=== PATIENT | male | born 1960 | race Caucasian/White ===

== ENCOUNTER 2018-04-27 18:38 | Observation (INO) ==
[2018-04-27] MEDS ORDERED: Isovue-370 500 ML INFUS..BTL IV ONE (20:14)
[2018-04-27] MEDS ORDERED: methylPREDNISolone 125 MG/2 ML VIAL IVP ONE (20:16)
[2018-04-27] MEDS ORDERED: 0.9 % Sodium Chloride 1,000 ML IVC ONE (20:16)
[2018-04-27] MEDS ORDERED: Ondansetron 4 MG/2 ML VIAL IVP ONE (20:16)
[2018-04-27] MEDS ORDERED: Ipratropium/Albuterol Neb 3 ML IH ONE (20:16)
[2018-04-27 20:27] LABS: Basophils % 0.1 %; Hematocrit 47.1 % (37.5-50.1); Hemoglobin 15.9 g/dL (12.9-16.9); Immature Granulocytes % 0.4 % (0-4); Lymphocytes # 1.8 K/mcL (0.6-4.6); Lymphocytes % 11.6 %; Mean Corpuscular HGB Conc 33.8 g/dL (31.6-35.5); Mean Corpuscular Hemoglobin 30.1 pg (28.0-33.3); Mean Corpuscular Volume 89.2 fL (83.0-100.0); Monocytes # 0.7 K/mcL (0.0-1.3); Monocytes % 4.7 %; Neutrophils # 13.1 K/mcL (1.6-8.9); Platelet Count 261 K/mcL (140-400); Red Blood Count 5.28 M/mcL (4.19-5.50); Red Cell Distribution Width 12.3 % (11.5-14.5); Segmented Neutrophils % 83.2 %
[2018-04-27 20:47] LABS: Alanine Aminotransferase 9 Units/L (7-52); Albumin 4.4 g/dL (3.5-5.7); Albumin/Globulin Ratio 1.4 (1.1-2.2); Alkaline Phosphatase 69 Units/L (34-104); Aspartate Amino Transferase 10 Units/L (13-39); BUN/Creatinine Ratio 19 (6-26); Bilirubin,Direct 0.2 mg/dL (0.0-0.2); Bilirubin,Indirect 0.8 mg/dL (0.0-1.2); Blood Urea Nitrogen 14 mg/dL (6-20); Calcium 10.3 mg/dL (8.6-10.3); Carbon Dioxide 29 mEq/L (23-29); Chloride 103 mEq/L (98-107); Globulin 3.2 g/dL (2.4-3.5); Glucose 129 mg/dL (70-105); Lipase 8 Units/L (11-82); Osmolality,Calculated 294 (280-300); Sodium 141 mEq/L (136-145); Total Protein 7.6 g/dL (6.4-8.9); eGFR For Non-African Americans > 60 (> 60)
--- NOTE | 2018-04-27 20:49 | Emergency Department Note ---
Disposition Clinical Impression: Multifocal pneumonia Aspiration pneumonia Qualifiers: Aspiration pneumonia type: unspecified Laterality: left Lung location: unspecified part of lung Qualified Code(s): J69.0 - Pneumonitis due to inhalation of food and vomit Disposition: Admitted As Inpatient Condition: Good Referrals: NONE,PCP [Primary Care Provider] - Forms: ED Satisfaction Letter General Adult HPI - General Chief complaint: ED Back Pain/Injury Stated complaint: N/V Back Pain Time Seen by Provider: 04/27/18 20:08 Source: patient Mode of arrival: ambulatory Limitations: no limitations Nursing Notes Reviewed: Yes Vital Signs Reviewed: Yes - History of Present Illness HPI Narrative: Patient states significant medical history of previous wilber placements within his back. Patient states he smokes but has not been diagnosed with any previous COPD. His coughing started approximately 4-5 days ago. He states cough is been progressively worse and nothing has helped. He is in the room actively coughing up positive sputum production. He does not seem to be able to get comfortable and continues to cough up positive sputum with each cough. Sputum is yellow and green in nature. He has posttussive emesis after his coughs. He states that he developed abdominal pain early yesterday and it has continued to worsen in nature. He states he has diffuse abdominal tenderness. On exam he is hard to examine secondary to the repeated episodes of coughing. Patient has mildly coarse lung sounds without specific wheezing. Concern for possible underlying COPD. Breathing treatments and steroids will be given secondary to the s ignificance of his symptoms. Chest x-ray, blood work, EKG, CT abdomen and pelvis also been ordered. High concern for pneumonia. Will rule out intra- abdominal pathologies. Patient will be monitored closely with frequent re- evaluations. Pain Scale: 10 - Related Data Previous Rx's Medication Instructions Recorded Tramadol HCl [Ultram] 50 mg PO TID PRN #14 tab 07/02/16 Allergies Allergy/AdvReac Type Severity Reaction Status Date / Time No Known Allergies Allergy Verified 07/02/16 20:44 Review of Systems: CONSTITUTIONAL: Fevers chills weakness and fatigue. HEENT: Eyes: No visual changes. Ears, Nose, Throat: No hearing loss, difficulty talking or unable to swallow. SKIN: No rash or itching. CARDIOVASCULAR: Chest pain worse with coughing RESPIRATORY: Shortness of breath, cough, positive sputum production. GASTROINTESTINAL: Generalized abdominal pain that is worse in the epigastric region with associated posttussive emesis decreased appetite. No diarrhea or constipation. GENITOURINARY: No burning on urination or hematuria. NEUROLOGICAL: No headache, dizziness, syncope, paralysis, ataxia, numbness or tingling in the extremities. No change in bowel or bladder control. MUSCULOSKELETAL: No muscle pain, back pain, joint pain or stiffness. Past Medical History - Past Medical History Medical history: Reports: hepatitis, other (chronic back pain, herniated lumbar disc) Surgical history: Reports: other (back surgery) Psychiatric history: Reports: no psych history - Social History Smoking Status: Former smoker Smokeless Tobacco Status: No Alcohol use: Reports: none Drug use: Reports: none Physical Exam General: Moderate distress secondary to repeated coughing. Head: Normocephalic Atraumatic Eyes: PERRL, EOMI ENT: Airway patent, no stridor Neck: supple Chest: Coarse lung sounds bilaterally. Cardiac: Regular rate and rhythm, no murmurs, rubs or gallops Abdomen: soft, generalized tenderness to the abdomen worsening epigastric region., nondistended; no guarding, rebound, or tenderness to percussion Musculoskeletal: Calves symmetric, nontender, no palpable cord Skin: No rash, normal skin tone Neuro: Alert and Oriented to person, place, and time; No focal deficit Course - Reevaluation(s) Reevaluation #1: Patient has had significant improvement in his overall coughing with breathing treatments. Patient did receive steroids. The patient has multifocal pneumonia on chest x-ray. CT scan shows innumerable lung nodules inflammatory versus infectious and concern for aspiration pneumonia. Given the patient's poor social history as well as follow-up and a concern for aspiration pneumonia patient will be admitted for further management. - Consultations Consultation #1: Discussed with hospitalist. Patient accepted for admission. Vital Signs Temperature 97.8 F 04/27/18 18:44 Pulse Rate 79 04/27/18 18:44 Respiratory Rate 18 04/27/18 18:44 Blood Pressure 170/103 04/27/18 18:44 O2 Sat by Pulse Oximetry 94 04/27/18 18:44 Temperature 97.8 F 04/27/18 21:32 Pulse Rate 61 04/27/18 22:35 Respiratory Rate 18 04/27/18 22:35 Blood Pressure 147/82 11/08/18 22:35 O2 Sat by Pulse Oximetry 96 04/27/18 22:35 Oxygen Delivery Oxygen Delivery Room Air Medical Decision Making - Lab Data Result diagrams: 04/27/18 20:09 04/27/18 20:09 Lab Results 04/27/18 04/27/18 04/27/18 Range/Units 20:09 20:09 20:30 WBC 15.7 H (4.3-11.1) K/mcL RBC 5.28 (4.19-5.50) M/mcL Hgb 15.9 (12.9-16.9) g/dL Hct 47.1 (37.5-50.1) % MCV 89.2 (83.0-100.0) fL MCH 30.1 (28.0-33.3) pg MCHC 33.8 (31.6-35.5) g/dL RDW 12.3 (11.5-14.5) % Plt Count 261 (140-400) K/mcL MPV 12.0 (9.4-12.4) fL Immature Gran % 0.4 (0-4) % Seg Neutrophils % 83.2 % Lymphocytes % 11.6 % Monocytes % 4.7 % Eosinophils % 0.0 % Basophils % 0.1 % Neutrophils # 13.1 H (1.6-8.9) K/mcL Lymphocytes # 1.8 (0.6-4.6) K/mcL Monocytes # 0.7 (0.0-1.3) K/mcL Eosinophils # 0.0 (0.0-0.6) K/mcL Basophils # 0.0 (0.0-0.2) K/mcL Sodium 141 (136-145) mEq/L Potassium 4.0 (3.5-5.1) mEq/L Chloride 103 (98-107) mEq/L Carbon Dioxide 29 (23-29) mEq/L BUN 14 (6-20) mg/dL Creatinine 0.73 (0.70-1.30) mg/dL Est GFR ( Amer) > 60 (> 60) Est GFR (Non-Af Amer) > 60 (> 60) BUN/Creatinine Ratio 19 (6-26) Glucose 129 H (70-105) mg/dL Calculated Osmolality 294 (280-300) Lactic Acid (0.5-2.2) mmol/L Calcium 10.3 (8.6-10.3) mg/dL Total Bilirubin 1.0 (0.3-1.0) mg/dL Direct Bilirubin 0.2 (0.0-0.2) mg/dL Indirect Bilirubin 0.8 (0.0-1.2) mg/dL AST 10 L (13-39) Units/L ALT 9 (7-52) Units/L Alkaline Phosphatase 69 (34-104) Units/L Troponin I < 0.03 (< 0.04) ng/mL Serum Total Protein 7.6 (6.4-8.9) g/dL Albumin 4.4 (3.5-5.7) g/dL Globulin 3.2 (2.4-3.5) g/dL Albumin/Globulin Ratio 1.4 (1.1-2.2) Lipase 8 L (11-82) Units/L Urine Color (Yellow) Urine Clarity (Clear) Urine pH (5.0-8.0) pH Units Ur Specific [place] (1.010-1.025) Urine Protein (Neg-Trace) mg/dL Urine Glucose (UA) (Normal) mg/dL Urine Ketones (Negative) mg/dL Urine Blood (Negative) Urine Nitrite (Negative) Urine Bilirubin (Negative) Urine Urobilinogen (Normal) mg/dL Ur Leukocyte Esterase (Negative) Urine Microscopic RBC (0-3) per hpf Urine Microscopic WBC (0-3) per hpf Ur Squamous Epith Cells (None-Few) per lpf Urine Bacteria (None-Few) per hpf Hyaline Casts (None-Few) per lpf Ur Culture Indicated? (NO) 04/27/18 04/27/18 Range/Units 20:30 20:58 WBC (4.3-11.1) K/mcL RBC (4.19-5.50) M/mcL Hgb (12.9-16.9) g/dL Hct (37.5-50.1) % MCV (83.0-100.0) fL MCH (28.0-33.3) pg MCHC (31.6-35.5) g/dL RDW (11.5-14.5) % Plt Count (140-400) K/mcL MPV (9.4-12.4) fL Immature Gran % (0-4) % Seg Neutrophils % % Lymphocytes % % Monocytes % % Eosinophils % % Basophils % % Neutrophils # (1.6-8.9) K/mcL Lymphocytes # (0.6-4.6) K/mcL Monocytes # (0.0-1.3) K/mcL Eosinophils # (0.0-0.6) K/mcL Basophils # (0.0-0.2) K/mcL Sodium (136-145) mEq/L Potassium (3.5-5.1) mEq/L Chloride (98-107) mEq/L Carbon Dioxide (23-29) mEq/L BUN (6-20) mg/dL Creatinine (0.70-1.30) mg/dL Est GFR ( Amer) (> 60) Est GFR (Non-Af Amer) (> 60) BUN/Creatinine Ratio (6-26) Glucose (70-105) mg/dL Calculated Osmolality (280-300) Lactic Acid 1.8 (0.5-2.2) mmol/L Calcium (8.6-10.3) mg/dL Total Bilirubin (0.3-1.0) mg/dL Direct Bilirubin (0.0-0.2) mg/dL Indirect Bilirubin (0.0-1.2) mg/dL AST (13-39) Units/L ALT (7-52) Units/L Alkaline Phosphatase (34-104) Units/L Troponin I (< 0.04) ng/mL Serum Total Protein (6.4-8.9) g/dL Albumin (3.5-5.7) g/dL Globulin (2.4-3.5) g/dL Albumin/Globulin Ratio (1.1-2.2) Lipase (11-82) Units/L Urine Color Dark Yellow (Yellow) Urine Clarity Clear (Clear) Urine pH 6.5 (5.0-8.0) pH Units Ur Specific [place] > 1.030 H (1.010-1.025) Urine Protein 100 H (Neg-Trace) mg/dL Urine Glucose (UA) Normal (Normal) mg/dL Urine Ketones 15 H (Negative) mg/dL Urine Blood Trace H (Negative) Urine Nitrite Negative (Negative) Urine Bilirubin Small H (Negative) Urine Urobilinogen 2.0 H (Normal) mg/dL Ur Leukocyte Esterase Trace H (Negative) Urine Microscopic RBC 0-3 (0-3) per hpf Urine Microscopic WBC 3-5 H (0-3) per hpf Ur Squamous Epith Cells Many H (None-Few) per lpf Urine Bacteria None Seen (None-Few) per hpf Hyaline Casts None Seen (None-Few) per lpf Ur Culture Indicated? NO. A (NO)
[2018-04-27 21:14] LABS: Bilirubin,Urine Small (Negative); Blood,Urine Trace (Negative); Clarity,Urine Clear (Clear); Color,Urine Dark Yellow (Yellow); Glucose,Urine (UA) Normal (Normal); Ketones,Urine 15 mg/dL (Negative); Leukocyte Esterase,Urine Trace (Negative); Nitrite,Urine Negative (Negative); PH,Urine 6.5 pH Units (5.0-8.0); Protein,Urine 100 mg/dL (Neg-Trace); Specific Gravity,Urine > 1.030 (1.010-1.025)
[2018-04-27 21:16] LABS: Bacteria,Urine None Seen per hpf (None-Few); Hyaline Casts,Urine None Seen per lpf (None-Few); Squamous Epithelial Cell,Urine Many per lpf (None-Few)
[2018-04-27 21:35] LABS: RBC,Urine 0-3 per hpf (0-3)
[2018-04-27] MEDS ORDERED: Piperacillin/Tazobactam 3.375 GM in 0.9 % Sodium Chloride Mini Bag 100 ML IVPB ONE (22:30)
--- NOTE | 2018-04-28 00:34 | Internal Med History&Physical ---
Date of Encounter: 04/28/18 Time of Encounter: 00:33 Internal Medicine - H&P: HPI Chief complaint: N/V/Back Pain History of present illness: Mr. Alvarez is a 57 year old male with past medical history of chronic back pain with history of wilber placement, significant smoking history and hypertension who presents with nausea and vomiting for the past 5 days. Patient states that he has been puking his guts up and has been unable to eat. He reports subjective fever and chill productive of yellowish sputum. Reports being around a patient who was recent for pneumonia. His coughing started approximately 4-5 days ago. He states cough is been progressively worse and nothing has helped. He does not seem to be able to get comfortable and continues to cough up positive sputum with each cough. Sputum is yellow and green in nature. He has posttussive emesis after his coughs. He states that he developed abdominal pain early yesterday and it has continued to worsen in nature. He states he has diffuse abdominal tenderness. denies any episodes of diarrhea. She also reporting chest pain discomfort described as pressure-like across his chest that is nonradiating. Patient has a significant smoking hx of over 40 pack years. He continues to smoke a pack a day. Has not been diagnosed with any previous COPD. Past Med Surg Social Fam HX - Past Medical History Medical history: hepatitis, other (chronic back pain, herniated lumbar disc) Additional medical history: Heptitis C Psychiatric history: no psych history - Past Surgical History Surgical History: other (back surgery) Additional surgical history: Back surgeries X2 - Social History Smoking Status: Former smoker Smokeless Tobacco Status: No Alcohol use: none Drug use: none - Family History Brother Hx Family Endocrine Disorder: Yes Internal Medicine - H&P: Meds Tramadol HCl [Ultram] 50 mg PO TID PRN #14 tab 07/02/16 [Rx] Allergy/AdvReac Type Severity Reaction Status Date / Time No Known Allergies Allergy Verified 07/02/16 20:44 All Systems PM: A 10-system review of systems was performed and is negative for pertinent findings except as documented above in the HPI. - Constitutional Constitutional: no chills, no fever(s), no night sweats - EENT Eyes: no change in vision, no discharge, no pain, no photophobia Ears: no ear discharge, no ear pain, no tinnitus Nose, mouth and throat: no dysphagia, no nasal discharge, no neck pain, no sore throat - Cardiovascular Cardiovascular ROS IM: no chest pain, no diaphoresis, no dyspnea, no lightheadedness, no palpitations, no syncope - Respiratory Respiratory: no cough, no dyspnea, no wheezing, no excessive phlegm production - Gastrointestinal Gastrointestinal: no abdominal pain, no diarrhea, no hematemesis, no hematochezia, no melena, no nausea, no vomiting - Musculoskeletal Musculoskeletal ROS IM: no numbness, no tingling - Integumentary Integumentary IM: no rash, no unusual bruising - Neurological Neurological ROS: no confusion, no convulsions, no focal weakness, no numbness, no tingling, no tremor(s) - Hematologic/Lymphatic Hematologic/Lymphatic: no easy bruising - Constitutional Vitals: Temp Pulse Resp BP Pulse Ox 97.8 F 61 18 147/82 96 04/27/18 21:32 04/27/18 22:35 04/27/18 22:35 04/27/18 22:35 04/27/18 22:35 Exam: General: Alert and oriented3 lying in bed in no acute distres Skin:Normal color, no rash, no lesions. HEENT:EOM, pupils equal, round and reactive. Cardiovascular:Normal S1 & S2, no rubs, murmurs or gallops. No JVD. Pulse regular. Lungs:diminished breath sounds throughout all, no wheezes or crackles. Abdomen:Soft, diffusely tender to palpation, no rigidity. Extremities:No deformity, no edema or tenderness, no joint swelling or clubbing. Neurological:Normal cognition and motor skills. Pulses:Carotid and radial pulses normal +2. Rest of the physical exam is non contributory Internal Med - H&P Results - Labs CBC & Chem 7: 04/28/18 03:55 04/28/18 03:55 Labs: Short CBC 04/27/18 Range/Units 20:09 WBC 15.7 H (4.3-11.1) K/mcL Hgb 15.9 (12.9-16.9) g/dL Hct 47.1 (37.5-50.1) % Plt Count 261 (140-400) K/mcL Neutrophils # 13.1 H (1.6-8.9) K/mcL BMP 04/27/18 20:09 Sodium 141 Potassium 4.0 Chloride 103 Carbon Dioxide 29 BUN 14 Creatinine 0.73 Glucose 129 H Calcium 10.3 Cardiac Enzymes 04/27/18 Range/Units 20:30 Troponin I < 0.03 (< 0.04) ng/mL Liver Function 04/27/18 Range/Units 20:09 Total Bilirubin 1.0 (0.3-1.0) mg/dL Direct Bilirubin 0.2 (0.0-0.2) mg/dL AST 10 L (13-39) Units/L ALT 9 (7-52) Units/L Alkaline Phosphatase 69 (34-104) Units/L Albumin 4.4 (3.5-5.7) g/dL Urine 04/27/18 Range/Units 20:58 Urine Color Dark Yellow (Yellow) Urine Clarity Clear (Clear) Urine pH 6.5 (5.0-8.0) pH Units Ur Specific [place] > 1.030 H (1.010-1.025) Urine Protein 100 H (Neg-Trace) mg/dL Urine Glucose (UA) Normal (Normal) mg/dL - Impressions ITS Impressions Abdomen/Pelvis CT 04/27/18 20:14 IMPRESSION: Innumerable punctate inflammatory/infectious nodules within the lower lungs bilaterally, with more focal consolidation seen at the left lung base. Findings are most compatible with left lower lobe pneumonia/aspiration on a background of bronchitis and bronchiolitis. Those findings should be followed to resolution. No definite acute intra-or intrapelvic abnormality is seen. There is possible mild mesenteric edema which raise the possibility of mild nonspecific enteritis. However, no evidence of bowel obstruction is seen, nor is there focal mural thickening. D/ / Fabio Hernandez MD / Fabio Hernandez MD Interpreting Provider: Fabio Hernandez MD Chest X-Ray 04/27/18 20:14 IMPRESSION: Patchy opacity within the left lung, concerning for multifocal pneumonia. That should be followed to resolution. D/ / Fabio Hernandez MD / Fabio Hernandez MD Interpreting Provider: Fabio Hernandez MD - Assessment and plan (1) Productive cough Current Visit: Yes Status: Acute Assessment and plan: Productive cough with elevated white blood cell count in the setting of nausea and vomiting with possible aspiration and CT scan findings showing innumerable punctate inflammatory versus infectious nodules within the lower lungs bilaterally with more focal consolidation seen at the left lung base. Compatible with left lower lobe pneumonia versus aspiration. He reports recent exposure to a patient was recently treated for pneumonia at [place]. Patient will be treated for community-acquired pneumonia. Continue with IV antibiotics with Zosyn. Follow-up blood and sputum cultures Follow-up urine strep and legionella antigen. (2) Abdominal pain Current Visit: Yes Status: Acute Assessment and plan: Diffuse abdominal pain associated with nausea and vomiting. CT scan of the abdomen shows mild mesenteric edema raising the possibility of mild nonspecific enteritis though no focal mural thickening seen. Possible gastroenteritis of viral origin. Patient reports feeling better and desires to eat. Continue with supportive care. Anti-emetics. Rest it as tolerated. Qualifiers: Abdominal location: unspecified location Qualified Code(s): R10.9 - Unspecified abdominal pain (3) Nausea and vomiting Current Visit: Yes Status: Acute Assessment and plan: Appears to have resolved. Anti-emetics. Qualifiers: Vomiting Intractability: unspecified Qualified Code(s): R11.2 - Nausea with vomiting, unspecified (4) Chronic back pain Current Visit: Yes Status: Acute Assessment and plan: Chronic back pain with extensive surgical history. Pain management. Qualifiers: Qualified Code(s): M54.9 - Dorsalgia, unspecified; G89.29 - Other chronic pain (5) Smoking history Current Visit: Yes Status: Acute (6) DVT prophylaxis Current Visit: Yes Status: Acute Assessment and plan: Subcutaneous heparin - Time Spent With Patient Total time spent is greater than 50% in coordination of care (as documented) at patient's floor/unit and/or counseling patient:
[2018-04-28] MEDS ORDERED: Naloxone 0.4 MG/ML INJ IVP PRN ×2 (00:44→01:48)
[2018-04-28] MEDS ORDERED: 0.9 % Sodium Chloride 1,000 ML IVC SCH (00:45)
[2018-04-28] MEDS ORDERED: Acetaminophen 325 MG TABLET PO PRN (01:48)
[2018-04-28] MEDS: *HR* Heparin 5,000 UNIT/ML VIAL SQ SCH ×4 (02:55→21:07)
[2018-04-28] MEDS: *HR* OxyCODONE Immed Rel 5 MG TABLET PO PRN ×2 (03:03→11:51)
[2018-04-28 04:23] LABS: Basophils % 0.1 %; Eosinophils % 0.1 %; Hematocrit 47.5 % (37.5-50.1); Hemoglobin 15.5 g/dL (12.9-16.9); Immature Granulocytes % 0.4 % (0-4); Lymphocytes # 1.8 K/mcL (0.6-4.6); Lymphocytes % 11.9 %; Mean Corpuscular HGB Conc 32.6 g/dL (31.6-35.5); Mean Corpuscular Hemoglobin 29.8 pg (28.0-33.3); Mean Corpuscular Volume 91.2 fL (83.0-100.0); Mean Platelet Volume 12.3 fL (9.4-12.4); Monocytes # 0.1 K/mcL (0.0-1.3); Monocytes % 0.8 %; Neutrophils # 13.2 K/mcL (1.6-8.9); Platelet Count 278 K/mcL (140-400); Red Blood Count 5.21 M/mcL (4.19-5.50); Red Cell Distribution Width 12.3 % (11.5-14.5); Segmented Neutrophils % 86.7 %
[2018-04-28 04:37] LABS: Alanine Aminotransferase 10 Units/L (7-52); Albumin 4.4 g/dL (3.5-5.7); Albumin/Globulin Ratio 1.4 (1.1-2.2); Alkaline Phosphatase 71 Units/L (34-104); Aspartate Amino Transferase 10 Units/L (13-39); BUN/Creatinine Ratio 20 (6-26); Bilirubin,Total 0.9 mg/dL (0.3-1.0); Blood Urea Nitrogen 15 mg/dL (6-20); Calcium 9.6 mg/dL (8.6-10.3); Carbon Dioxide 26 mEq/L (23-29); Chloride 102 mEq/L (98-107); Globulin 3.2 g/dL (2.4-3.5); Glucose 182 mg/dL (70-105); Osmolality,Calculated 297 (280-300); Potassium 3.2 mEq/L (3.5-5.1); Sodium 141 mEq/L (136-145); Total Protein 7.6 g/dL (6.4-8.9); eGFR For Non-African Americans > 60 (> 60)
[2018-04-28] MEDS: traMADol 50 MG TABLET PO PRN ×3 (05:01→21:07)
[2018-04-28] MEDS ORDERED: Potassium Chloride 40 MEQ, Lidocaine 1% 2 ML in D5% in Water 500 ML IVPB ONE (07:46)
[2018-04-28] MEDS: Piperacillin/Tazobactam 3.375 GM in 0.9 % Sodium Chloride Mini Bag 100 ML IVPB SCH ×2 (08:36→16:19)
--- NOTE | 2018-04-28 14:58 | Internal Med Progress Note ---
Hospitalist Progress Note - Encounter Date of Encounter: 04/28/18 Time of Encounter: 09:00 - Subjective Interval History: Patient has less shortness of breath. Improved nausea and vomiting. Mild cough. No fever. - Exam Vitals: Temp Pulse Resp BP Pulse Ox 98.0 F 53 15 116/75 95 04/28/18 12:01 04/28/18 12:01 04/28/18 12:01 04/28/18 12:01 04/28/18 12:01 Exam: General: Alert and oriented3 lying in bed in no acute distres Skin:Normal color, no rash, no lesions. HEENT:EOM, pupils equal, round and reactive. Cardiovascular:Normal S1 & S2, no rubs, murmurs or gallops. No JVD. Pulse regular. Lungs:diminished breath sounds throughout all, no wheezes or crackles. Abdomen:Soft, diffusely tender to palpation, no rigidity. Extremities:No deformity, no edema or tenderness, no joint swelling or clubbing. Neurological:Normal cognition and motor skills. Pulses:Carotid and radial pulses normal +2. Rest of the physical exam is non contributory - Assessment and Plan (1) Productive cough Current Visit: Yes Status: Acute Assessment and Plan: Productive cough with elevated white blood cell count in the setting of nausea and vomiting with possible aspiration and CT scan findings showing innumerable punctate inflammatory versus infectious nodules within the lower lungs bilaterally with more focal consolidation seen at the left lung base. Compatible with left lower lobe pneumonia versus aspiration. He reports recent exposure to a patient was recently treated for pneumonia at [place]. Patient will be treated for community-acquired pneumonia. - Continue with IV antibiotics with Zosyn. - Follow-up blood and sputum cultures - Follow-up urine strep and legionella antigen. - Clinically improved after treatment (2) Abdominal pain Current Visit: Yes Status: Acute Assessment and Plan: Improved now Continue with supportive care. Anti-emetics. (3) Nausea and vomiting Current Visit: Yes Status: Acute Assessment and Plan: Appears to have resolved. Cont anti-emetics as needed. (4) Chronic back pain Current Visit: Yes Status: Acute Assessment and Plan: Chronic back pain with extensive surgical history. Pain management. (5) Smoking history Current Visit: Yes Status: Acute (6) DVT prophylaxis Current Visit: Yes Status: Acute Assessment and Plan: Subcutaneous heparin DVT Prophylaxis: heparin sc - Time Spent with Patient Total time spent is greater than 50% in coordination of care (as documented) at patient's floor/unit and/or counseling patient: 30 min 25 - 35 minutes Plan of Care Discussed with: patient Internal Medicine: Result - Labs CBC & Chem 7: 04/28/18 03:55 04/28/18 03:55 Labs: Short CBC 04/27/18 04/28/18 Range/Units 20:09 03:55 WBC 15.7 H 15.2 H (4.3-11.1) K/mcL Hgb 15.9 15.5 (12.9-16.9) g/dL Hct 47.1 47.5 (37.5-50.1) % Plt Count 261 278 (140-400) K/mcL Neutrophils # 13.1 H 13.2 H (1.6-8.9) K/mcL BMP 04/27/18 04/28/18 20:09 03:55 Sodium 141 141 Potassium 4.0 3.2 L Chloride 103 102 Carbon Dioxide 29 26 BUN 14 15 Creatinine 0.73 0.75 Glucose 129 H 182 H Calcium 10.3 9.6 Cardiac Enzymes 04/27/18 Range/Units 20:30 Troponin I < 0.03 (< 0.04) ng/mL Liver Function 04/27/18 04/28/18 Range/Units 20:09 03:55 Total Bilirubin 1.0 0.9 (0.3-1.0) mg/dL Direct Bilirubin 0.2 (0.0-0.2) mg/dL AST 10 L 10 L (13-39) Units/L ALT 9 10 (7-52) Units/L Alkaline Phosphatase 69 71 (34-104) Units/L Albumin 4.4 4.4 (3.5-5.7) g/dL Urine 04/27/18 Range/Units 20:58 Urine Color Dark Yellow (Yellow) Urine Clarity Clear (Clear) Urine pH 6.5 (5.0-8.0) pH Units Ur Specific [place] > 1.030 H (1.010-1.025) Urine Protein 100 H (Neg-Trace) mg/dL Urine Glucose (UA) Normal (Normal) mg/dL - Impressions Impressions Abdomen/Pelvis CT 04/27/18 20:14 IMPRESSION: Innumerable punctate inflammatory/infectious nodules within the lower lungs bilaterally, with more focal consolidation seen at the left lung base. Findings are most compatible with left lower lobe pneumonia/aspiration on a background of bronchitis and bronchiolitis. Those findings should be followed to resolution. No definite acute intra-or intrapelvic abnormality is seen. There is possible mild mesenteric edema which raise the possibility of mild nonspecific enteritis. However, no evidence of bowel obstruction is seen, nor is there focal mural thickening. D/ / Fabio Hernandez MD / Fabio Hernandez MD Interpreting Provider: Fabio Hernandez MD Chest X-Ray 04/27/18 20:14 IMPRESSION: Patchy opacity within the left lung, concerning for multifocal pneumonia. That should be followed to resolution. D/ / Fabio Hernandez MD / Fabio Hernandez MD Interpreting Provider: Fabio Hernandez MD Consult Discharge Plan - Plan Referrals: NONE,PCP [Primary Care Provider] - (2) Abdominal pain Qualifiers: Abdominal location: unspecified location Qualified Code(s): R10.9 - Unspecified abdominal pain (3) Nausea and vomiting Qualifiers: Vomiting Intractability: unspecified Qualified Code(s): R11.2 - Nausea with vomiting, unspecified (4) Chronic back pain Qualifiers: Qualified Code(s): M54.9 - Dorsalgia, unspecified; G89.29 - Other chronic pain
--- NOTE | 2018-04-28 17:09 | Electrocardiograph Report ---
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
--- NOTE | 2018-04-28 17:31 | Electrocardiograph Report ---
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
[2018-04-29] MEDS: Piperacillin/Tazobactam 3.375 GM in 0.9 % Sodium Chloride Mini Bag 100 ML IVPB SCH (00:12)
[2018-04-29] MEDS: *HR* Heparin 5,000 UNIT/ML VIAL SQ SCH ×3 (05:33→22:09)
[2018-04-29 05:52] LABS: Basophils % 0.1 %; Eosinophils % 0.1 %; Hematocrit 36.9 % (37.5-50.1); Hemoglobin 12.3 g/dL (12.9-16.9); Immature Granulocytes % 0.3 % (0-4); Lymphocytes # 4.9 K/mcL (0.6-4.6); Lymphocytes % 27.9 %; Mean Corpuscular HGB Conc 33.3 g/dL (31.6-35.5); Mean Corpuscular Hemoglobin 30.1 pg (28.0-33.3); Mean Corpuscular Volume 90.2 fL (83.0-100.0); Mean Platelet Volume 12.1 fL (9.4-12.4); Monocytes # 1.2 K/mcL (0.0-1.3); Monocytes % 6.7 %; Neutrophils # 11.3 K/mcL (1.6-8.9); Platelet Count 245 K/mcL (140-400); Red Blood Count 4.09 M/mcL (4.19-5.50); Red Cell Distribution Width 12.3 % (11.5-14.5); Segmented Neutrophils % 64.9 %
[2018-04-29 06:15] LABS: BUN/Creatinine Ratio 28 (6-26); Blood Urea Nitrogen 17 mg/dL (6-20); Calcium 8.7 mg/dL (8.6-10.3); Carbon Dioxide 26 mEq/L (23-29); Chloride 103 mEq/L (98-107); Glucose 97 mg/dL (70-105); Osmolality,Calculated 281 (280-300); Potassium 3.8 mEq/L (3.5-5.1); Sodium 135 mEq/L (136-145); eGFR For Non-African Americans > 60 (> 60)
[2018-04-29] MEDS: cefTRIAXone 2,000 MG in 0.9 % Sodium Chloride Mini Bag 100 ML IVPB SCH (08:42)
[2018-04-29] MEDS: Azithromycin 500 MG in D5% in Water 250 ML IVPB SCH (09:20)
[2018-04-29] MEDS: Ondansetron 4 MG/2 ML VIAL IVP PRN ×2 (10:22→16:56)
--- NOTE | 2018-04-29 12:33 | Internal Med Progress Note ---
Hospitalist Progress Note - Encounter Date of Encounter: 04/29/18 Time of Encounter: 09:00 - Subjective Interval History: Patient has less shortness of breath. C/O sweat a lot. Chronic back pain. Denies nausea and vomiting. Mild cough. No fever. - Exam Vitals: Temp Pulse Resp BP Pulse Ox 98.3 F 54 16 135/83 96 04/29/18 06:45 04/29/18 06:45 04/29/18 06:45 04/29/18 06:45 04/29/18 06:45 Exam: General: Alert and oriented3 lying in bed in no acute distres Skin:Normal color, no rash, no lesions. HEENT:EOM, pupils equal, round and reactive. Cardiovascular:Normal S1 & S2, no rubs, murmurs or gallops. No JVD. Pulse regular. Lungs:diminished breath sounds throughout all, no wheezes or crackles. Abdomen:Soft, diffusely tender to palpation, no rigidity. Extremities:No deformity, no edema or tenderness, no joint swelling or clubbing. Neurological:Normal cognition and motor skills. Pulses:Carotid and radial pulses normal +2. Rest of the physical exam is non contributory - Assessment and Plan (1) Productive cough Current Visit: Yes Status: Acute Assessment and Plan: Productive cough with elevated white blood cell count in the setting of nausea and vomiting and CT scan findings showing innumerable punctate inflammatory versus infectious nodules within the lower lungs bilaterally with more focal consolidation seen at the left lung base. Compatible with left lower lobe pneumonia. He reports recent exposure to a patient was recently treated for pneumonia at [facility]. Patient will be treated for community-acquired pneumonia. - Continue with IV antibiotics, deescalate to azithromycin and rocephin. - Blood culture no growth so far. Sputum culture preliminarily shows GNR - Negative urine strep and legionella antigen. - Clinically improved after treatment (2) Abdominal pain Current Visit: Yes Status: Acute Assessment and Plan: Resolved now Continue with supportive care. Anti-emetics as needed. CT abd reviewed, unremarkable. (3) Chronic back pain Current Visit: Yes Status: Acute Assessment and Plan: Chronic back pain with extensive surgical history. Pain management. (4) Smoking history Current Visit: Yes Status: Acute (5) DVT prophylaxis Current Visit: Yes Status: Acute Assessment and Plan: Subcutaneous heparin (6) Community acquired pneumonia Current Visit: Yes Status: Acute Assessment and Plan: On azithromycin and rocephin IV. Cont supportive treatment. DVT Prophylaxis: Heparin SC - Time Spent with Patient Total time spent is greater than 50% in coordination of care (as documented) at patient's floor/unit and/or counseling patient: 30 min 25 - 35 minutes Plan of Care Discussed with: patient Internal Medicine: Result - Labs CBC & Chem 7: 04/29/18 05:17 04/29/18 05:17 Labs: Short CBC 04/29/18 Range/Units 05:17 WBC 17.4 H (4.3-11.1) K/mcL Hgb 12.3 L D (12.9-16.9) g/dL Hct 36.9 L (37.5-50.1) % Plt Count 245 (140-400) K/mcL Neutrophils # 11.3 H (1.6-8.9) K/mcL BMP 04/29/18 05:17 Sodium 135 L Potassium 3.8 Chloride 103 Carbon Dioxide 26 BUN 17 Creatinine 0.60 L Glucose 97 Calcium 8.7 Consult Discharge Plan - Plan Referrals: NONE,PCP [Primary Care Provider] - (2) Abdominal pain Qualifiers: Abdominal location: unspecified location Qualified Code(s): R10.9 - Unspecified abdominal pain (3) Chronic back pain Qualifiers: Qualified Code(s): M54.9 - Dorsalgia, unspecified; G89.29 - Other chronic pain (6) Community acquired pneumonia Qualifiers: Laterality: left Lung location: lower lobe of lung Qualified Code(s): J18.1 - Lobar pneumonia, unspecified organism
[2018-04-29] MEDS: *HR* OxyCODONE Immed Rel 5 MG TABLET PO PRN ×2 (17:00→23:11)
[2018-04-29] MEDS ORDERED: Ipratropium/Albuterol Neb 3 ML IH PRN (20:01)
[2018-04-29] MEDS: *HR* Promethazine 25 MG/ML VIAL IVP PRN (23:11)
[2018-04-29] MEDS: Ipratropium/Albuterol Neb 3 ML IH SCH (23:36)
[2018-04-30 00:29] LABS: Hematocrit 42.7 % (37.5-50.1); Mean Corpuscular HGB Conc 33.7 g/dL (31.6-35.5); Mean Corpuscular Hemoglobin 29.8 pg (28.0-33.3); Mean Corpuscular Volume 88.4 fL (83.0-100.0); Mean Platelet Volume 11.8 fL (9.4-12.4); Platelet Count 266 K/mcL (140-400); Red Blood Count 4.83 M/mcL (4.19-5.50); Red Cell Distribution Width 11.9 % (11.5-14.5)
[2018-04-30 00:30] LABS: Hemoglobin 14.4 g/dL (12.9-16.9)
[2018-04-30 00:57] LABS: Lymphocytes # 4.5 K/mcL (0.6-4.6); Monocytes # 0.4 K/mcL (0.0-1.3); Neutrophils # 5.3 K/mcL (1.6-8.9); Platelet Estimate Normal (Normal)
[2018-04-30 00:58] LABS: Reactive Lymphocytes Present (Not Present)
[2018-04-30] MEDS: traMADol 50 MG TABLET PO PRN (02:54)
[2018-04-30 03:39] LABS: Adenovirus Not Detected (Not Detect); Bordetella Pertussis Not Detected (Not Detect); Chlamydophila pneumoniae Not Detected (Not Detect); Coronavirus 229E Not Detected (Not Detect); Coronavirus HKU1 Not Detected (Not Detect); Coronavirus NL63 Not Detected (Not Detect); Coronavirus OC43 Not Detected (Not Detect); Human Metapneumovirus Not Detected (Not Detect); Human Rhinovirus/Enterovirus DETECTED (Not Detect); Influenza A Subtype 2009 H1 Not Detected (Not Detect); Influenza A Untypeable Not Detected (Not Detect); Influenza B Not Detected (Not Detect); Mycoplasma pneumoniae Not Detected (Not Detect); Parainfluenza Virus 1 Not Detected (Not Detect); Parainfluenza Virus 2 Not Detected (Not Detect); Parainfluenza Virus 3 Not Detected (Not Detect); Parainfluenza Virus 4 Not Detected (Not Detect); Respiratory Syncytial Virus Not Detected (Not Detect)
[2018-04-30] MEDS: Ipratropium/Albuterol Neb 3 ML IH SCH ×4 (03:47→23:14)
[2018-04-30] MEDS: *HR* OxyCODONE Immed Rel 5 MG TABLET PO PRN ×2 (05:49→20:48)
[2018-04-30] MEDS: *HR* Heparin 5,000 UNIT/ML VIAL SQ SCH ×3 (05:50→22:13)
[2018-04-30 05:55] LABS: Hemoglobin 14.2 g/dL (12.9-16.9); Mean Corpuscular HGB Conc 33.8 g/dL (31.6-35.5); Mean Corpuscular Hemoglobin 29.6 pg (28.0-33.3); Mean Corpuscular Volume 87.7 fL (83.0-100.0); Mean Platelet Volume 11.6 fL (9.4-12.4); Platelet Count 272 K/mcL (140-400); Red Blood Count 4.79 M/mcL (4.19-5.50); Red Cell Distribution Width 11.9 % (11.5-14.5)
[2018-04-30 06:17] LABS: BUN/Creatinine Ratio 18 (6-26); Blood Urea Nitrogen 12 mg/dL (6-20); Calcium 9.1 mg/dL (8.6-10.3); Carbon Dioxide 27 mEq/L (23-29); Chloride 103 mEq/L (98-107); Glucose 104 mg/dL (70-105); Osmolality,Calculated 288 (280-300); Potassium 3.4 mEq/L (3.5-5.1); Sodium 139 mEq/L (136-145); eGFR For Non-African Americans > 60 (> 60)
[2018-04-30 07:30] LABS: Lymphocytes # 2.1 K/mcL (0.6-4.6); Monocytes # 0.4 K/mcL (0.0-1.3); Neutrophils # 8.1 K/mcL (1.6-8.9); Platelet Estimate Normal (Normal)
[2018-04-30] MEDS: Azithromycin 500 MG in D5% in Water 250 ML IVPB SCH (08:57)
[2018-04-30] MEDS: cefTRIAXone 2,000 MG in 0.9 % Sodium Chloride Mini Bag 100 ML IVPB SCH (08:57)
--- NOTE | 2018-04-30 13:06 | Internal Med Progress Note ---
Hospitalist Progress Note - Encounter Date of Encounter: 04/30/18 Time of Encounter: 09:00 - Subjective Interval History: Patient has feels better, still mild cough. Chronic back pain. Denies nausea and vomiting. No fever. - Exam Vitals: Temp Pulse Resp BP Pulse Ox 98.2 F 71 16 136/84 96 04/30/18 12:40 04/30/18 12:40 04/30/18 12:40 04/30/18 12:40 04/30/18 12:40 Exam: General: Alert and oriented3 lying in bed in no acute distres Skin:Normal color, no rash, no lesions. HEENT:EOM, pupils equal, round and reactive. Cardiovascular:Normal S1 & S2, no rubs, murmurs or gallops. No JVD. Pulse regular. Lungs:diminished breath sounds throughout all, no wheezes or crackles. Abdomen:Soft, diffusely tender to palpation, no rigidity. Extremities:No deformity, no edema or tenderness, no joint swelling or clubbing. Neurological:Normal cognition and motor skills. Pulses:Carotid and radial pulses normal +2. Rest of the physical exam is non contributory - Assessment and Plan (1) Productive cough Current Visit: Yes Status: Acute Assessment and Plan: Productive cough with elevated white blood cell count in the setting of nausea and vomiting and CT scan findings showing innumerable punctate inflammatory versus infectious nodules within the lower lungs bilaterally with more focal consolidation seen at the left lung base. Compatible with left lower lobe pneumonia. He reports recent exposure to a patient was recently treated for pneumonia at [facility]. Patient will be treated for community-acquired pneumonia. - Continue with IV antibiotics, deescalate to azithromycin and rocephin. - Blood culture no growth so far. Sputum culture shows Enterobacter, sensitive to rocephin - Negative urine strep and legionella antigen. - Clinically improved after treatment - Respiratory viral panel shows positive for Entero/Rhino virus. (2) Abdominal pain Current Visit: Yes Status: Acute Assessment and Plan: Resolved now Continue with supportive care. Anti-emetics as needed. CT abd reviewed, unremarkable. (3) Chronic back pain Current Visit: Yes Status: Acute Assessment and Plan: Chronic back pain with extensive surgical history. Pain management. (4) Smoking history Current Visit: Yes Status: Acute (5) DVT prophylaxis Current Visit: Yes Status: Acute Assessment and Plan: Subcutaneous heparin (6) Community acquired pneumonia Current Visit: Yes Status: Acute Assessment and Plan: On azithromycin and rocephin IV. Cont supportive treatment. DVT Prophylaxis: Heparin SC - Time Spent with Patient Total time spent is greater than 50% in coordination of care (as documented) at patient's floor/unit and/or counseling patient: 30 min 25 - 35 minutes Plan of Care Discussed with: patient Internal Medicine: Result - Labs CBC & Chem 7: 04/30/18 05:42 04/30/18 05:42 Labs: Short CBC 04/30/18 04/30/18 Range/Units 00:04 05:42 WBC 10.2 10.6 (4.3-11.1) K/mcL Hgb 14.4 D 14.2 (12.9-16.9) g/dL Hct 42.7 42.0 (37.5-50.1) % Plt Count 266 272 (140-400) K/mcL Neutrophils # 5.3 8.1 (1.6-8.9) K/mcL BMP 04/30/18 05:42 Sodium 139 Potassium 3.4 L Chloride 103 Carbon Dioxide 27 BUN 12 Creatinine 0.66 L Glucose 104 Calcium 9.1 - Impressions Impressions Chest X-Ray 04/29/18 19:57 IMPRESSION: No significant change in streaky opacity in the left lung base. D/ / Nieves Dominique MD / Nieves Dominique MD Interpreting Provider: Nieves Dominique MD Consult Discharge Plan - Plan Referrals: NONE,PCP [Primary Care Provider] - (2) Abdominal pain Qualifiers: Abdominal location: unspecified location Qualified Code(s): R10.9 - Unspecifi ed abdominal pain (3) Chronic back pain Qualifiers: Qualified Code(s): M54.9 - Dorsalgia, unspecified; G89.29 - Other chronic pain (6) Community acquired pneumonia Qualifiers: Laterality: left Lung location: lower lobe of lung Qualified Code(s): J18.1 - Lobar pneumonia, unspecified organism
[2018-04-30] MEDS: *HR* Promethazine 25 MG/ML VIAL IVP PRN (23:18)
[2018-05-01] MEDS: *HR* OxyCODONE Immed Rel 5 MG TABLET PO PRN (03:39)
[2018-05-01] MEDS: Ondansetron 4 MG/2 ML VIAL IVP PRN (03:39)
[2018-05-01] MEDS: Ipratropium/Albuterol Neb 3 ML IH SCH ×2 (04:25→10:53)
[2018-05-01] MEDS: *HR* Heparin 5,000 UNIT/ML VIAL SQ SCH (05:31)
[2018-05-01 06:03] LABS: Basophils % 0.1 %; Eosinophils % 0.4 %; Hematocrit 42.9 % (37.5-50.1); Hemoglobin 14.4 g/dL (12.9-16.9); Immature Granulocytes % 0.4 % (0-4); Lymphocytes # 3.2 K/mcL (0.6-4.6); Lymphocytes % 38.7 %; Mean Corpuscular HGB Conc 33.6 g/dL (31.6-35.5); Mean Corpuscular Hemoglobin 29.8 pg (28.0-33.3); Mean Corpuscular Volume 88.6 fL (83.0-100.0); Mean Platelet Volume 11.5 fL (9.4-12.4); Monocytes # 0.7 K/mcL (0.0-1.3); Monocytes % 8.2 %; Neutrophils # 4.3 K/mcL (1.6-8.9); Platelet Count 302 K/mcL (140-400); Red Blood Count 4.84 M/mcL (4.19-5.50); Red Cell Distribution Width 11.9 % (11.5-14.5); Segmented Neutrophils % 52.2 %
[2018-05-01 06:14] LABS: BUN/Creatinine Ratio 21 (6-26); Blood Urea Nitrogen 12 mg/dL (6-20); Carbon Dioxide 26 mEq/L (23-29); Chloride 104 mEq/L (98-107); Glucose 116 mg/dL (70-105); Osmolality,Calculated 285 (280-300); Potassium 3.5 mEq/L (3.5-5.1); Sodium 137 mEq/L (136-145); eGFR For Non-African Americans > 60 (> 60)
[2018-05-01 06:27] LABS: Platelet Estimate Normal (Normal)
[2018-05-01 06:28] LABS: Reactive Lymphocytes Present (Not Present)
[2018-05-01] MEDS: Azithromycin 500 MG in D5% in Water 250 ML IVPB SCH (08:28)
[2018-05-01] MEDS: cefTRIAXone 2,000 MG in 0.9 % Sodium Chloride Mini Bag 100 ML IVPB SCH (08:29)
[2018-05-01 10:51] VITALS: BP 127/81
--- NOTE | 2018-05-01 11:31 | Discharge Summary ---
- NOTES TO OUTPATIENT PROVIDER Notes to Outpatient Provider: 1. Pt has CAP, cont po levaquin for 4 days. Orders not resulted at time of discharge: Pending orders 04/27/18 22:45 Culture,Blood [BC] Stat Date of Encounter: 05/01/18 Time of Encounter: 10:00 - Discharge Diagnosis (1) Productive cough Priority: Primary Status: Acute (2) Abdominal pain Priority: Primary Status: Acute Qualifiers: Abdominal location: unspecified location Qualified Code(s): R10.9 - Unspecified abdominal pain (3) Chronic back pain Priority: Secondary Status: Acute Qualifiers: Qualified Code(s): M54.9 - Dorsalgia, unspecified; G89.29 - Other chronic pain (4) Smoking history Priority: Secondary Status: Acute (5) DVT prophylaxis Priority: Secondary Status: Acute (6) Community acquired pneumonia Priority: Primary Status: Acute Qualifiers: Laterality: left Lung location: lower lobe of lung Qualified Code(s): J18.1 - Lobar pneumonia, unspecified organism Hospital course: Mr. Alvarez is a 57 year old male presented to ER for abdominal pain and nausea vomiting, with cough. CT abdominal has been done, no significant acute change, however, shows left lower lobe pneumonia. Patient has no recent hospitalization. Patient was treated with Zosyn at the beginning and switch to azithromycin and Rocephin later for community acquired pneumonia. Sputum culture shows Enterobacter. After treatment, patient's condition has improved, no further abdominal pain, nausea, or vomiting. No shortness of breath. Will DC patient home with by mouth antibiotics Levaquin as patient's Enterobacter is sensitive to Levaquin per sensitivity. Patient was also found Entero/Rhino virus positive. Patient complaint diarrhea yesterday, C. difficile test has been done, negative for C. difficile, patient was given when necessary loperamide and diarrhea is controlled by medications. I have seen and examined the patient today. Denies abdominal pain. Denies fever. Denies cough. Denies shortness of breath. No nausea or vomiting. Good intake. Intermittent diarrhea need when necessary loperamide. Vitals are stable. SPO2 96% in RA. Will DC patient home with by mouth Levaquin for 4 more days to finish the seven-day course. Discharge discussed with: patient - Time Spent with Patient Total time spent providing and/or coordinating discharge services: 30 min Less than 30 minutes - Discharge Medications Prescriptions: GuaiFENesin/Dextromethorphan [Robitussin/Dm] 5 ml PO Q4HR PRN #200 ml PRN Reason: Cough Loperamide [Imodium] 2 mg PO Q4HR PRN 6 Days #36 capsule PRN Reason: Diarrhea Home Medications: GuaiFENesin/Dextromethorphan [Robitussin/Dm] 5 ml PO Q4HR PRN #200 ml 05/01/18 [Rx] Lactobacillus [Culturelle] 2 each PO DAILY 7 Days #14 cap.[email or web address] 05/01/18 [Rx] Levofloxacin [Levaquin] 750 mg PO DAILY 4 Days #4 tablet 05/01/18 [Rx] Loperamide [Imodium] 2 mg PO Q4HR PRN 6 Days #36 capsule 05/01/18 [Rx] Allergies/Adverse Reactions: Allergy/AdvReac Type Severity Reaction Status Date / Time No Known Allergies Allergy Verified 07/02/16 20:44 Date of admission: 04/27/18 23:51 Primary care physician: PCP NONE Consults: 04/28/18 01:05 Consult to Nutrition [CONS] Routine Comment: Consulting Provider: NUTRITION Reason for Dietary Consult: MST Score 04/29/18 23:00 Consult to Respiratory Therapy [CONS] Routine Reason for Consult: Add flutter valve to pts. breathing txs Call Completed: Yes Discharging clinician: Reinier Brown Anticipated date of discharge: 05/01/18 - Constitutional Vitals: Temp Pulse Resp BP Pulse Ox 98.2 F 63 16 127/81 96 05/01/18 10:42 05/01/18 10:42 05/01/18 10:53 05/01/18 10:42 05/01/18 10:53 General appearance: Present: A&O X 3, no acute distress, answers questions appropriately Exam: General: Alert and oriented3 lying in bed in no acute distres Skin:Normal color, no rash, no lesions. HEENT:EOM, pupils equal, round and reactive. Cardiovascular:Normal S1 & S2, no rubs, murmurs or gallops. No JVD. Pulse regular. Lungs:diminished breath sounds throughout all, no wheezes or crackles. Abdomen:Soft, NT Extremities:No deformity, no edema or tenderness, no joint swelling or clubbing. Neurological:Normal cognition and motor skills. Pulses:Carotid and radial pulses normal +2. Rest of the physical exam is non contributory - Patient Status Disposition: Home, Self-Care Condition: Good Functional capacity at discharge: independent ambulation Overall status at discharge: patient is back to baseline - Discharge Instructions Follow Up With: NONE,PCP [Primary Care Provider] - - Diet and Activity Activity: increase activity as tolerated Diet: advance to your usual diet
--- NOTE | 2018-05-02 22:08 | Electrocardiograph Report ---
[address] [address] Test Date: 2018-04-29 Pat Name: Chidi Alvarez Department: 114 Room: [facility] Gender: M Ladies Attendant: [id number] : 1960 Requested By: [id number] Order Number: [id number] Reading MD: Liza Brown Measurements Intervals [place] Rate: 51 P: 81 ID: [id number] QRS: 24 QRSD: 111 T: 63 QT: 481 QTc: 444 Interpretive Statements SINUS BRADYCARDIA WITH PRE-EXCITATION WPW PATTERN Electronically Signed On 05-02-2018 22:06:52 EST by Liza Brown
== END 2018-05-01 14:45 | disposition home or self-care (01) ==
LOC: EMEROOARM 18:38 → 3NENU 18:38 → SUATTDRO 23:51 → 3NENU 04-28 00:41
PROVIDERS: ADMIT Internal Medicine; ATTEND Internal Medicine